=== PATIENT | male | born 1985 | race Caucasian/White ===

== ENCOUNTER 2016-10-26 18:12 | Emergency (ER) | payer SELFPAY ==
[2016-10-26] MEDS ORDERED: Lidocaine 2% Viscous Solution 15 ML Cup PO PRN (18:45)
[2016-10-26] MEDS ORDERED: Benzocaine 20% Topical Spray UD MUCMEM ONE (18:45)
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
[2016-10-26 19:34] VITALS: BP 126/58
== END 2016-10-26 19:43 | disposition home or self-care (01) ==
LOC: MW.ED 18:12
DX: K02.9 Dental caries, unspecified (principal)
CPT/HCPCS: 99282; A9270; 99283

== ENCOUNTER 2017-03-15 19:49 | Emergency (ER) | payer OTHER ==
[2017-03-15 20:09] VITALS: BP 133/83
[2017-03-15] MEDS ORDERED: Benzocaine 20% Topical Spray UD MUCMEM ONE (20:13)
[2017-03-15] MEDS ORDERED: Lidocaine 2% Viscous Solution 15 ML Cup PO ONE (20:13)
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
== END 2017-03-15 20:28 | disposition home or self-care (01) ==
LOC: MW.ED 19:49
DX: K08.89 Other specified disorders of teeth and supporting structures (principal); Z90.49 Acquired absence of other specified parts of digestive tract
CPT/HCPCS: 99282; A9270; 99283

== ENCOUNTER 2017-05-17 14:20 | Emergency (ER) | payer OTHER ==
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
[2017-05-17 15:58] VITALS: BP 138/68
--- NOTE | 2017-05-18 16:47 | CR ---
EXAM DATE: 05/17/17 PATIENT'S AGE: 32 Patient: AGUILA LOPEZ Facility: [place], [place] Site . Site : 1985 Study: XRay Spine Thoracic [id number] 3:24:40 PM Ordering Physician: Krista Lambert Final Report: TECHNIQUE: Two views of the thoracic spine. INDICATION: Back pain. FINDINGS: Mild right convex thoracic curve. No thoracic spine fracture identified although the upper spine is not well seen on the lateral images. No significant degenerative change. No vertebral body anomalies. Dictated by Mike Still MD @ 05/17/2017 3:34:26 PM Dictated by: Mike Still MD @ 05/17/2017 15:34:31 (Electronic Signature) Report Signed by Proxy. [facility]
== END 2017-05-17 15:55 | disposition home or self-care (01) ==
LOC: MW.ED 14:20
DX: M54.6 Pain in thoracic spine (principal); Z90.49 Acquired absence of other specified parts of digestive tract
CPT/HCPCS: 72070; 72070-26; 99282; 99283

== ENCOUNTER 2017-10-29 21:40 | Emergency (ER) | payer SELFPAY ==
[2017-10-29 21:53] VITALS: BP 119/73
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
[2017-10-29] MEDS ORDERED: cefTRIAXone 1,000 MG in Lidocaine 1% 4 ML IM ONE (22:18)
== END 2017-10-29 22:55 | disposition home or self-care (01) ==
LOC: MW.ED 21:40
DX: K08.89 Other specified disorders of teeth and supporting structures (principal); Z79.899 Other long term (current) drug therapy
CPT/HCPCS: 96372; 99283; J0696; 99282

== ENCOUNTER 2017-12-02 17:30 | Emergency (ER) | payer SELFPAY ==
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
[2017-12-02 19:23] VITALS: BP 127/79
--- NOTE | 2017-12-03 09:40 | CR ---
EXAM DATE: 12/02/17 PATIENT'S AGE: 32 Patient: AGUILA LOPEZ Facility: [place], [place] Site . Site : 1985 Study: XRay Extremity Left [id number] 6:11:25 PM Ordering Physician: Doctor Mcdaniels Final Report: INDICATION: hand/wrist injury TECHNIQUE: Three views of the left hand COMPARISON: None FINDINGS: Bones: No fractures or bone lesions. Joint spaces: Unremarkable. Soft tissues: Unremarkable. IMPRESSION: No acute bony abnormality Dictated by Arsenio Jon MD @ 12/02/2017 6:25:42 PM Dictated by: Arsenio Jon MD @ 12/02/2017 18:25:47 (Electronic Signature) Report Signed by Proxy. [facility]
== END 2017-12-02 18:52 | disposition home or self-care (01) ==
LOC: MW.ED 17:30
DX: M25.532 Pain in left wrist (principal); X50.9XXA Other and unspecified overexertion or strenuous movements or postures, initial encounter; Y93.89 Activity, other specified
CPT/HCPCS: 73130-26-LT; 73130-LT; 99282; 99283

== ENCOUNTER 2018-04-20 18:22 | Emergency (ER) | payer SELFPAY ==
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
[2018-04-20 22:24] VITALS: BP 136/75
== END 2018-04-20 19:36 | disposition home or self-care (01) ==
LOC: MW.ED 18:22
DX: S09.93XA Unspecified injury of face, initial encounter (principal); W51.XXXA Accidental striking against or bumped into by another person, initial encounter
CPT/HCPCS: 99283

== ENCOUNTER 2021-10-17 00:54 | Emergency (ER) | payer BC, MEDICAID ==
[2021-10-17 01:11] VITALS: BP 140/82; PULSE 91
[2021-10-17] MEDS ORDERED: traMADol 50 MG Tab PO ONE (01:15)
[2021-10-17] MEDS ORDERED: Ketorolac 30 MG/ML SDV IM ONE (01:15)
[2021-10-17] MEDS ORDERED: Lidocaine 2% Viscous Solution 15 ML UD PO ONE (01:18)
== END 2021-10-17 01:29 | disposition home or self-care (01) ==
LOC: MW.ED 00:54
DX: K02.9 Dental caries, unspecified (principal); H92.02 Otalgia, left ear
CPT/HCPCS: 96372; 99282; A9270; J1885

== ENCOUNTER 2022-03-17 17:03 | Emergency (ER) | payer BC, MEDICAID ==
[2022-03-17 17:15] VITALS: BP 138/82; PULSE 88
== END 2022-03-17 17:30 | disposition home or self-care (01) ==
LOC: MW.ED 17:03
DX: K08.89 Other specified disorders of teeth and supporting structures (principal); Z90.49 Acquired absence of other specified parts of digestive tract; Z79.899 Other long term (current) drug therapy
CPT/HCPCS: 99282; 99283

== ENCOUNTER 2024-06-13 21:31 | Emergency (ER) | payer MEDICAID, OTHER ==
[2024-06-13 23:13] LABS: CORONAVIRUS COVID-19 NAA NEGATIVE (NEGATIVE); INFLUENZA A NAA NEGATIVE (NEGATIVE); INFLUENZA B NAA NEGATIVE (NEGATIVE); RESPIRATORY SYNCYTIAL VIR NAA NEGATIVE (NEGATIVE)
[2024-06-13] MEDS: Amoxicillin 500 MG Cap PO ONE (23:30)
[2024-06-14 00:26] VITALS: BP 128/72; PULSE 72
== END 2024-06-13 23:44 | disposition home or self-care (01) ==
LOC: MW.ED 21:31
DX: J06.9 Acute upper respiratory infection, unspecified (principal); B97.89 Other viral agents as the cause of diseases classified elsewhere; H66.91 Otitis media, unspecified, right ear; Z75.8 Other problems related to medical facilities and other health care
CPT/HCPCS: 0241U; 99283; A9270

== ENCOUNTER 2024-07-14 12:00 | Emergency (ER) | payer OTHER ==
[2024-07-14 12:13] VITALS: BP 129/74; PULSE 69
== END 2024-07-14 12:56 | disposition home or self-care (01) ==
LOC: MW.ED 12:00
DX: B34.9 Viral infection, unspecified (principal); Z75.8 Other problems related to medical facilities and other health care; Z90.49 Acquired absence of other specified parts of digestive tract
CPT/HCPCS: 99283